=== PATIENT | female | born 2000 | race Caucasian/White ===

== ENCOUNTER 2023-06-24 08:53 | Outpatient (AMB) | payer BC, SELFPAY ==
--- NOTE | 2023-06-24 09:42 | MHC.PC.OV ---
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 She denies a significant past medical history. She is transferring from pediatrics. musculoskeletal: She does complain today of left ankle pain x 2 months. She was playing soccer and rolled her ankle and then saw who ordered crutches and a brace. She used the brace for about a week. She states the pain initially improved but never fully went away. She states now with any prolonged activity she gets swelling and persistent, worse pain. She did not get any imaging from the urgent care. Psych: She did answer on her phq9 a total of 4. She states she is feeling overwhelmed and on certain days just feels like she lacks the energy to do anything. She states that she stress between working, going to school full-time at [employer] and trying to play sports. On days off she just wants to watch TV and not talk to anyone. This is very unlike her. This started about a year ago and waxes and wanes in intensity. She does not believe she is ever been on medication for this before but states that in childhood she was diagnosed with generalized anxiety disorder. She was sometimes have panic attacks but does not currently feel like that as a problem for her. This all seemed to start after she got out of a long-term relationship. She also feels that winter has made it a bit worse. She denies feeling hopeless, any SI/HI. She states that she just lacks motivation and at times isolates herself. She is doing well in school. No issues with working. She does at times feel anxious. 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 [facility], [facility] Family History (Updated 06/24/23 @ 10:18 by Glendy Arias CMA) Mother Asthma Father Asthma HTN (hypertension) Hypercholesteremia Alcoholism Paternal Grandmother Hypercholesteremia Paternal Grandfather Clotting disorder Alcoholism Other Mental disorder Substance abuse Social History Patient Tobacco Use Status: Never used Tobacco e-Cigarette/Vaping Use: Former Use service: No Current occupational status: employed Current occupation: [employer] Current occupational exposures/hazards: No Cognitive needs: No Hearing needs: No Vision needs: Yes Questionnaire PHQ-9 Over the last 2 weeks, how often have you been bothered by any of the following problems? 1. Little interest or pleasure in doing things: several days 2. Feeling down, depressed, or hopeless: several days 3. Trouble falling or staying asleep, or sleeping too much: several days 4. Feeling tired or having little energy: several days 5. Poor appetite or overeating: not at all 6. Feeling bad about yourself - or that you are a failure or have let yourself or your family down: not at all 7. Trouble concentrating on things, such as reading the newspaper or watching television: not at all 8. Moving or speaking so slowly that other people could have noticed. Or the opposite - being so fidgety or restless that you have been moving around a lot more than usual: not at all 9. Thoughts that you would be better off or of hurting yourself in some way: not at all Total score: 4 Depression Screening Interpretation: Positive Depression Screening Follow-up: New Medication prescribed and Follow-up Visit Requested Depression Screening Done: Yes 76112 - PHQ-9 Billing: Yes Source: Developed by Drs. Feng Thorpe, Cass Gamboa, Marcus Tenorio and colleagues, with an educational kin from [employer]. Thrive Questionnaire Date Thrive assessed: 06/24/23 I am a: Patient What is your living situation today?: I have a steady place to live Within the past 12 months, did the food you bought not last and you didn't have the money to get more?: Never true Within the past 12 months, did you worry whether your food would run out before you got money to buy more?: Never true Do you have trouble paying for medicines?: No Do you have trouble getting transportation to medical appointments?: No Do you have trouble paying your heating and electricity bill?: No Do you have trouble taking care of your child, family member or friend?: No Do you have trouble with day-to-day activities such as bathing, preparing meals, shopping, managing finances, etc.?: No Are you currently unemployed and looking for a job?: No Are you interested in more education?: No Please select the resources that you would like help with: None Currently or been in a relationship where the following occur: no concerns reported THRIVE Score: 0 AUDIT C Alcohol Use Questionnaire (AUDIT-C) 1. How often do you have a drink containing alcohol?: Monthly or less 2. How many drinks containing alcohol do you have on a typical day when you are drinking?: 3 or 4 3. How often do you have six or more drinks on one occasion?: Less than monthly Total Score: 3 Score Reviewed/Action Taken: Yes ARTURO-7 AMB Questionnaire ARTURO-7 Date ARTURO - 7 assessed: 06/24/23 Feeling nervous, anxious, or on edge: 2 = More than half the days Not being able to stop or control worryin = Several days Worrying too much about different things: 1 = Several days Trouble relaxin = Not at all Being so restless that it is hard to sit still: 0 = Not at all Becoming easily annoyed or irritable: 0 = Not at all Feeling afraid as if something awful might happen: 1 = Several days Total ARTURO-7 score (0-4 normal; 5-9 mild; 10-14 moderate; 15-21 severe): 5 Source: Developed by Drs. Feng Thorpe, Cass Gamboa, Marcus Tenorio and colleagues, with an educational kin from [employer] ARTURO-7 Assessment Billing ARTURO-7 Assessment Tool: ARTURO-7 Assessment 86347 Physical exam (Primary Care) Vital Signs: Last Vital Signs Temp 98.1 F 06/24/23 09:46 Pulse 83 06/24/23 09:46 Resp 12 06/24/23 09:46 BP 118/80 06/24/23 09:46 Pulse Ox 99 06/24/23 09:46 Oxygen Delivery Method Room Air 06/24/23 09:46 BMI result Body Mass Index 30.9 Tobacco/Smoking Status: Tobacco use Status Tobacco use date assessed 06/24/23 06/24/23 09:50 Patient Tobacco Use Status Never used Tobacco 06/24/23 09:50 e-Cigarette/Vaping Use Former Use 06/24/23 09:50 Depression Screening Interpretation: Positive Depression Screening Follow-up: New Medication prescribed and Follow-up Visit Requested Currently or been in a relationship where the following occur: no concerns reported Const General: cooperative, healthy appearing and no acute distress Orientation/consciousness: patient oriented x3 HENMT Ears: hearing grossly normal bilaterally and TM's normal bilaterally Face and sinus: Yes sinuses nontender Mouth: Normal oral and palatal mucosa present Throat: Yes posterior oropharynx normal, Yes tonsils normal and Yes uvula midline Eyes Pupils: Equal, round and reactive pupils present EOM: EOMs intact bilaterally Neck Neck: Yes full ROM and Yes no lymphadenopathy Thyroid: Thyroid normal Resp Auscultation: clear to auscultation bilaterally Cardio Rate: regular rate Rhythm: regular rhythm Heart sounds: S1 normal heart sound present and S2 normal heart sound present GI Palpation (GI): Soft to palpation and Other GI palpation findings present (Nontender) Auscultation: normal bowel sounds General: Yes no CVA tenderness Back/Spine/Pelvis Back: no CVA tenderness and other (FROM, nontender) Skin General skin exam: no rashes or lesions noted Neuro General: patient oriented x3, gait normal, no focal motor deficits and CN's II-XI intact bilaterally Cranial nerves: Yes Equal, round and reactive pupils present Cognition (Neuro): normal cognition Motor exam (neuro): 5/5 motor strength present throughout Psych Appearance: grossly normal and well kempt Speech and movement: Normal speech and movement present Affect: normal affect Thought process: Normal thought process present Thought content: Normal thought content present Insight: Good insight present (Psych) Judgement: Good judgement present (Psych) Assessment and Plan Assessment & Plan (1) Routine general medical examination at a health care facility: Code(s): Z00.00 - Encounter for general adult medical examination without abnormal findings Plan: reviewed labs ordered referral to forging press 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 discussed risks and benefits and adverse effects. declines follow up 4-6 weeks for recheck (4) Dysthymia: Code(s): F34.1 - Dysthymic disorder Plan: see above. No SI/HI. advised emergent medical treatment if develops. labs ordered (5) Left ankle pain: Code(s): M25.572 - Pain in left ankle and joints of left foot Qualifiers: Chronicity: chronic Qualified Code(s): M25.572 - Pain in left ankle and joints of left foot; G89.29 - Other chronic pain Plan: referral ortho xray ordered Orders: Orders Lipid Panel Today E66.9 - Obesity, unspecified, F34.1 - Dysthymic disorder, F41.0 - Panic disorder [episodic paroxysmal anxiety], F41.1 - Generalized anxiety disorder, Z00.00 - Encounter for general adult medical examination without abnormal findings Complete Blood Count Auto Diff Today E66.9 - Obesity, unspecified, F34.1 - Dysthymic disorder, F41.0 - Panic disorder [episodic paroxysmal anxiety], F41.1 - Generalized anxiety disorder, Z00.00 - Encounter for general adult medical examination without abnormal findings Comprehensive [place]. Panel Fast Today E66.9 - Obesity, unspecified, F34.1 - Dysthymic disorder, F41.0 - Panic disorder [episodic paroxysmal anxiety], F41.1 - Generalized anxiety disorder, Z00.00 - Encounter for general adult medical examination without abnormal findings TSH reflex Free T4 Today E66.9 - Obesity, unspecified, F34.1 - Dysthymic disorder, F41.0 - Panic disorder [episodic paroxysmal anxiety], F41.1 - Generalized anxiety disorder, Z00.00 - Encounter for general adult medical examination without abnormal findings Vitamin B12 Today E66.9 - Obesity, unspecified, F34.1 - Dysthymic disorder, F41.0 - Panic disorder [episodic paroxysmal anxiety], F41.1 - Generalized anxiety disorder, Z00.00 - Encounter for general adult medical examination without abnormal findings XR ankle LT min 3V Today M25.572 - Pain in left ankle and joints of left foot, Z00.00 - Encounter for general adult medical examination without abnormal findings Referrals Orthopedics Referral M25.572 - Pain in left ankle and joints of left foot 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 Referral Z01.419 - Encounter for gynecological examination (general) (routine) without abnormal findings Medications: New escitalopram oxalate (Lexapro) 5 mg PO DAILY 90 tabs 0RF Coding Level of Care Code New Pt Prev Care 18-39yr(58141 Diagnoses Routine general medical examination at a health care facility Z00.00 Obesity (BMI 35.0-39.9 without comorbidity) E66.9 Generalized anxiety disorder with panic attacks F41.1; F41.0 Dysthymia F34.1 Chronic pain of left ankle M25.572; G89.29 Chronicity: chronic Additional Codes ARTURO-7 Assessment Billing - ARTURO-7 Assessment Tool: ARTURO-7 Assessment 50022 ([id number])
[2023-06-24 09:46] VITALS: BP 118/80; PULSE 83; RESP 12; TEMP 36.7; O2SAT 99; BMI 30.9
== END 2023-06-24 10:25 | disposition home or self-care (01) ==
PROVIDERS: PCP Physician Assistant; Visit Provider Physician Assistant
DX: Z00.00 Encounter for general adult medical examination without abnormal findings (principal); E66.9 Obesity, unspecified; F41.1 Generalized anxiety disorder; Z68.30 Body mass index [BMI] 30.0-30.9, adult; F41.0 Panic disorder [episodic paroxysmal anxiety]; F34.1 Dysthymic disorder; M25.572 Pain in left ankle and joints of left foot; G89.29 Other chronic pain
CPT/HCPCS: 96127; 99385

== ENCOUNTER 2023-06-24 10:24 | Outpatient (REF) | payer BC, SELFPAY ==
[2023-06-24 11:19] LABS: MANUAL DIFF FLAG NO
[2023-06-24 11:36] LABS: Basophils Percent Auto 0.5 % (0-2); Eosinophils Absolute Auto 0.2 X10*3/uL (0.0-0.4); Hematocrit 45.4 % (37.0-47.0); Hemoglobin 15.1 g/dl (12.0-16.0); Imm Gran Abs Auto 0.01 X10*3/uL (0.00-0.03); Imm Gran Pct Auto 0.2 % (0.0-0.4); Lymphocytes Percent Auto 31.1 % (20-40); Mean Corpuscular HGB Conc 33.3 g/dl (31.0-35.0); Mean Corpuscular Hemoglobin 29.9 pg (27.0-33.0); Mean Corpuscular Volume 89.9 fL (80.0-98.0); Mean Platelet Volume 10.9 fL (9.4-12.3); Monocytes Absolute Auto 0.5 X10*3/uL (0.1-1.2); Monocytes Percent Auto 7.7 % (2-11); Neutrophils Absolute Auto 3.7 x10*3/uL (2.0-8.3); Neutrophils Percent Auto 57.5 % (45-73); Platelet Count 268 X10*3/uL (160-400); Red Blood Count 5.05 X10*6/uL (4.20-5.50); White Blood Count 6.3 X10*3/uL (4.8-10.8)
[2023-06-24 12:16] LABS: Alanine Aminotransferase 26 U/L (0-31); Albumin Level 4.3 g/dL (3.5-5.0); Alkaline Phosphatase 101 U/L (39-117); Anion Gap 10 (12-20); Aspartate Amino Transferase 18 U/L (5-31); Bilirubin Total 0.5 mg/dL (0.0-1.0); Blood Urea Nitrogen 8 mg/dL (9-16); Calcium 9.2 mg/dL (8.4-10.2); Carbon Dioxide 29 mmol/L (22-29); Chloride 104 mmol/L (96-108); Cholesterol 202 mg/dL (<200); Estimated Glomerular Filt Rate > 60; Glucose Fasting 92 mg/dL (60-99); HDL Cholesterol 65 mg/dL (>40); LDL Cholesterol Calculated 122 mg/dL (<100); Potassium 3.8 mmol/L (3.3-5.1); Sodium 139 mmol/L (135-145); Total Protein 7.7 g/dL (6.5-8.0); Triglycerides 75 mg/dL (<150)
[2023-06-24 12:28] LABS: Vitamin B12 410 pg/mL (200-900)
[2023-06-24 12:33] LABS: TSH reflex Free T4 1.56 uIU/mL (0.32-4.0)
== END 2023-06-24 10:25 | disposition home or self-care (01) ==
LOC: HO.WFDLDS 10:24
PROVIDERS: Visit Provider Physician Assistant
DX: Z00.00 Encounter for general adult medical examination without abnormal findings (principal); F34.1 Dysthymic disorder; E66.9 Obesity, unspecified; F41.1 Generalized anxiety disorder; F41.0 Panic disorder [episodic paroxysmal anxiety]
CPT/HCPCS: 36415; 80053; 80061; 82607; 84443; 85025

== ENCOUNTER 2023-06-30 11:01 | Outpatient (REF) | payer BC, SELFPAY ==
--- NOTE | ~2023-06-30 | XR_ITS ---
EXAMINATION: XR ANKLE, LEFT CLINICAL INFORMATION: Pain. COMPARISON: None available. TECHNIQUE: AP, lateral, and mortise views of the left ankle. FINDINGS: No fracture. Alignment is anatomic. No erosions. Joint spaces are maintained. Soft tissues are normal. XR/XR ankle LT min 3V IMPRESSION: Normal left ankle.
== END 2023-06-30 11:02 | disposition home or self-care (01) ==
LOC: HO.XRAY 11:01
PROVIDERS: PCP Physician Assistant; Visit Provider Physician Assistant
DX: M25.572 Pain in left ankle and joints of left foot (principal)
CPT/HCPCS: 73610

== ENCOUNTER 2023-07-28 10:16 | Outpatient (AMB) | payer BC, SELFPAY ==
--- NOTE | 2023-07-28 10:23 | MHC.PC.OV ---
Vital Signs 07/28/23 10:25 Height 5 ft 3 in Weight 177 lb 6 oz BMI 31.4 BP 112/70 Blood Pressure Location Rt brachial Position Sitting Respiration 14 Pulse 97 Pulse Source Pulse Oximeter Pulse Oximetry (%) 97 Oxygen Delivery Method Room Air Intake Visit Reasons: depression f/u Intake Note: Follow up depression. Storeroom Clerk Required: No Allergies No Known Allergies Allergy (Verified 07/28/23 10:24) Medication List - Last Reconciled 07/28/23 by Jennifer Martel PA-C escitalopram oxalate (Lexapro) 5 mg PO DAILY Tobacco use date assessed: 07/28/23 Dental Screening Dental Screen Date: 06/24/23 HPI depression f/u HPI Details Patient is a 22-year-old female who presents today for a follow up. musculoskeletal: At our last visit she complained of left ankle pain for the last couple of months. She had an x-ray which was negative. She has an upcoming appointment with Orthopedics next week. Psych: At our last visit we did discuss her increased stress, anxiety and depression. She was started on Lexapro 5 mg. She states that she is tolerating this well. At our last visit she had a PHQ-9 score of 4 and now she has a 3. She does not want to adjust the medication because she is feeling like she is tolerating the medication well and able to cope better. She wants to get this more time especially as she just finished her semester. She denies any SI/HI. 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 scheduled [facility] Family History (Updated 06/24/23 @ 10:18 by Glendy Arias CMA) Mother Asthma Father Asthma HTN (hypertension) Hypercholesteremia Alcoholism Paternal Grandmother Hypercholesteremia Paternal Grandfather Clotting disorder Alcoholism Other Mental disorder Substance abuse Social History Patient Tobacco Use Status: Never used Tobacco e-Cigarette/Vaping Use: Former Use service: No Current occupational status: employed Current occupation: [employer] Current occupational exposures/hazards: No Cognitive needs: No Hearing needs: No Vision needs: Yes Questionnaire PHQ-9 Over the last 2 weeks, how often have you been bothered by any of the following problems? 1. Little interest or pleasure in doing things: not at all 2. Feeling down, depressed, or hopeless: not at all 3. Trouble falling or staying asleep, or sleeping too much: more than half the days 4. Feeling tired or having little energy: several days 5. Poor appetite or overeating: not at all 6. Feeling bad about yourself - or that you are a failure or have let yourself or your family down: not at all 7. Trouble concentrating on things, such as reading the newspaper or watching television: not at all 8. Moving or speaking so slowly that other people could have noticed. Or the opposite - being so fidgety or restless that you have been moving around a lot more than usual: not at all 9. Thoughts that you would be better off or of hurting yourself in some way: not at all Total score: 3 Depression Screening Interpretation: Positive Depression Screening Done: Yes 81983 - PHQ-9 Billing: Yes Source: Developed by Drs. Feng Thorpe, Cass Gamboa, Marcus Tenorio and colleagues, with an educational kin from [employer] Thrive Questionnaire Date Thrive assessed: 06/24/23 ARTURO-7 AMB Questionnaire ARTURO-7 Date ARTURO - 7 assessed: 07/28/23 Feeling nervous, anxious, or on edge: 1 = Several days Not being able to stop or control worryin = Not at all Worrying too much about different things: 0 = Not at all Trouble relaxin = Not at all Being so restless that it is hard to sit still: 0 = Not at all Becoming easily annoyed or irritable: 1 = Several days Feeling afraid as if something awful might happen: 0 = Not at all Total ARTURO-7 score (0-4 normal; 5-9 mild; 10-14 moderate; 15-21 severe): 2 Source: Developed by Drs. Feng Thorpe, Cass Gamboa, Marcus Tenorio and colleagues, with an educational kin from [employer] ARTURO-7 Assessment Billing ARTURO-7 Assessment Tool: ARTURO-7 Assessment 79227 Physical exam (Primary Care) Vital Signs: Last Vital Signs Pulse 97 07/28/23 10:25 Resp 14 07/28/23 10:25 BP 112/70 07/28/23 10:25 Pulse Ox 97 07/28/23 10:25 Oxygen Delivery Method Room Air 07/28/23 10:25 BMI result Body Mass Index 31.4 Tobacco/Smoking Status: Tobacco use Status Tobacco use date assessed 07/28/23 07/28/23 10:25 Patient Tobacco Use Status Never used Tobacco 07/28/23 10:25 e-Cigarette/Vaping Use Former Use 07/28/23 10:25 PHQ-9: PHQ-9 Score PHQ-9: Total score 3 07/28/23 10:29 Depression Screening Interpretation: Positive Thrive Assessment: Date of Thrive Assessment Date Thrive assessed 06/24/23 07/28/23 10:25 Const Orientation/consciousness: patient oriented x3 HENMT Ears: hearing grossly normal bilaterally Neck Thyroid: Thyroid normal Lymphatic: no lymphadenopathy noted Resp Auscultation: clear to auscultation bilaterally Cardio Rate: regular rate Rhythm: regular rhythm Heart sounds: S1 normal heart sound present and S2 normal heart sound present GI Inspection: Yes normal to inspection Palpation (GI): Soft to palpation and Other GI palpation findings present (nontender, no cva tenderness) Auscultation: normoactive bowel sounds Rectal Exam - Female: deferred Skin General skin exam: no rashes or lesions noted Neuro General: patient oriented x3, gait normal and no focal motor deficits Results Reviewed Results Reviewed: Laboratory Tests 06/24/23 10:30 WBC 6.3 RBC 5.05 Hgb 15.1 Hct 45.4 Plt Count 268 Sodium 139 Potassium 3.8 Chloride 104 Carbon Dioxide 29 Anion Gap 10 L BUN 8 L Creatinine 0.69 Estimated GFR > 60 Fasting Glucose 92 Calcium 9.2 Total Bilirubin 0.5 AST 18 ALT 26 Alkaline Phosphatase 101 Total Protein 7.7 Albumin 4.3 Triglycerides 75 Cholesterol 202 H LDL Cholesterol, Calc 122 H HDL Cholesterol 65 Vitamin B12 410 TSH 1.56 Assessment and Plan Assessment & Plan (1) Dysthymia: Code(s): F34.1 - Dysthymic disorder Plan: Continue current regimen. We reviewed labs. Offered referral to behavioral health but declines at this time. Follow up in 3 months. Sooner if needed. Patient understands and agrees with the plan. (2) Generalized anxiety disorder with panic attacks: Code(s): F41.1 - Generalized anxiety disorder; F41.0 - Panic disorder [episodic paroxysmal anxiety] (3) Left ankle pain: Code(s): M25.572 - Pain in left ankle and joints of left foot Qualifiers: Chronicity: chronic Qualified Code(s): M25.572 - Pain in left ankle and joints of left foot; G89.29 - Other chronic pain Plan: Following with ortho. Reviewed imaging. Medications: Refilled escitalopram oxalate (Lexapro) 5 mg PO DAILY 90 tabs 3RF Coding Level of Care Code Est Pt Level 3 (42280) Complex EM visit Add On G2211 Diagnoses Dysthymia F34.1 Generalized anxiety disorder with panic attacks F41.1; F41.0 Chronic pain of left ankle M25.572; G89.29 Chronicity: chronic Additional Codes ARTURO-7 Assessment Billing - ARTURO-7 Assessment Tool: ARTURO-7 Assessment 56702 ([id number])
[2023-07-28 10:25] VITALS: BP 112/70; PULSE 97; RESP 14; O2SAT 97; BMI 31.4
== END 2023-07-28 10:50 | disposition home or self-care (01) ==
PROVIDERS: PCP Physician Assistant; Visit Provider Physician Assistant
DX: F34.1 Dysthymic disorder (principal); F41.1 Generalized anxiety disorder; F41.0 Panic disorder [episodic paroxysmal anxiety]; M25.572 Pain in left ankle and joints of left foot; G89.29 Other chronic pain
CPT/HCPCS: 99213; G2211

== ENCOUNTER 2023-08-03 08:37 | Outpatient (REF) | payer BC, SELFPAY ==
[2023-08-04 11:23] LABS: Bacterial Vaginosis PCR NEGATIVE (Negative); Candida Group PCR NOT DETECTED (Not Detect); Candida glab krusei PCR NOT DETECTED (Not Detect); Trichomonas vaginalis PCR NOT DETECTED (Not Detect)
[2023-08-04 11:40] LABS: CT PCR NOT DETECTED (Not Detect.); NG PCR NOT DETECTED (Not Detect.)
== END 2023-08-03 08:38 | disposition home or self-care (01) ==
LOC: HO.HHCLNP 08:37
PROVIDERS: Visit Provider Advanced Practice Midwife
DX: Z01.419 Encounter for gynecological examination (general) (routine) without abnormal findings (principal); Z20.2 Contact with and (suspected) exposure to infections with a predominantly sexual mode of transmission
CPT/HCPCS: 0352U; 0353U

== ENCOUNTER 2023-08-03 13:37 | Outpatient (AMB) | payer BC, SELFPAY ==
[2023-08-03 13:59] VITALS: BP 110/70; BMI 30.8
--- NOTE | 2023-08-03 13:59 | A.OFFVIS_ITS ---
Vital Signs 08/03/23 13:59 Height 5 ft 3 in Weight 174 lb BMI 30.8 BP 110/70 Intake Visit Reasons: New patient Annual Well Flow Operator Required: No Information Interpreted: clinical only Work Station Support Specialist: Work Station Support Specialist Present Allergies No Known Allergies Allergy (Verified 08/03/23 13:59) Medication List - Last Reconciled 08/03/23 by Bianka Covington CNM escitalopram oxalate (Lexapro) 5 mg PO DAILY Is last menstrual period known: No (7 mth ago) Do you need a note to return to daycare/school/sports/work: No HPI HPI New patient Annual: Details: Patient is here for 1st annual exam she has a history of irregular or amenorrheic patterns and was put on control pills to deal with the amenorrhea at 18 years old she stopped them about 7 months ago because she was not sexually after active for the last year. She thought they were making her depressed but when she got off them did not change in thing she started with a new primary care provider about 3 months ago and has started on Lexapro for anxiety and depression and thinks it is helping she has not interested in counseling or therapy at this time. She also realized that the control pills had nothing to do with depression. She has gained about 20+ lb at least over the last year. She has a history of increased facial hair and acne as well. She would be interested in going back on control pills to help her have regular periods. She has not sexually active now and has not been for least a year. 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 She has a gym membership. [facility] Family History Mother Asthma Father Asthma HTN (hypertension) Hypercholesteremia Alcoholism Paternal Grandmother Hypercholesteremia Paternal Grandfather Clotting disorder Alcoholism Other Mental disorder Substance abuse Social History Patient Tobacco Use Status: Never used Tobacco e-Cigarette/Vaping Use: Former Use service: No Current occupational status: employed Current occupation: [employer] Current occupational exposures/hazards: No Cognitive needs: No Hearing needs: No Vision needs: Yes Female Reproductive History Menstrual Age of Menarche: 14 Duration of menses: 3-5 days control method: none Total pregnancies: 0 History of abnormal pap smear: No (no previous pap) Physical Exam Vital Signs: Last Vital Signs BP 110/70 08/03/23 13:59 BMI result Body Mass Index 30.8 Const General: healthy appearing, comfortable, no acute distress, well developed and alert Nutritional Appearance: average body habitus Orientation/consciousness: patient oriented x3 Limitations: no limitations HEENT Head: Yes normocephalic Neck Neck: Yes normal visual inspection Thyroid: Thyroid normal Chest Chest palpation & inspection: normal inspection of the chest Breast/axilla inspection: normal inspection of the breasts and normal inspection of the axillae Breast/axilla palpation: normal palpation of the breasts and normal palpation of the axillae Resp Effort & Inspection: normal respiratory effort GI Inspection: Yes normal to inspection, No Abdominal wall edema and No distended Palpation (GI): Soft to palpation and nontender Other: So it is more acne but patient says she has it. External exam completely within normal limits vagina pink and moist cervix nulliparous pink smooth mobile nontender scant normal clear discharge uterus midposition mobile nontender adnexa nontender fair tone with Kegel difficult to recreate. General: Yes bladder normal to palpation External Female Exam: normal external appearance and normal appearance of the urethra Speculum Exam - Vagina: normal appearance of the vagina, normal palpation and normal vaginal discharge Speculum Exam - Cervix: normal appearance of the cervix, normal palpation and nontender Bimanual exam- vagina & uterus: normal bimanual exam, normal palpation, uterine size normal, bladder normal to palpation, consistency normal, normal palpation, uterine mobility normal, uterine shape normal, No Cervical tenderness present, non-tender and no cervical motion tenderness Bimanual Exam- Adnexa, other: normal adnexae, no masses, normal and No adnexal tenderness Neuro General: patient oriented x3 Assessment & Plan Assessment & Plan (1) Well woman exam with routine gynecological exam: Code(s): Z01.419 - Encounter for gynecological examination (general) (routine) without abnormal findings Category: Medical (2) Amenorrhea, secondary: Code(s): N91.1 - Secondary amenorrhea Category: Medical (3) Hx of female hirsutism: Code(s): Z87.2 - Personal history of diseases of the skin and subcutaneous tissue Category: Medical (4) Acne: Code(s): L70.9 - Acne, unspecified Category: Medical (5) Papanicolaou smear for cervical cancer screening: Code(s): Z12.4 - Encounter for screening for malignant neoplasm of cervix Category: Medical (6) Encounter for screening examination for sexually transmitted disease: Code(s): Z11.3 - Encounter for screening for infections with a predominantly sexual mode of transmission Category: Medical Plan -----Discussed in this visit the following: healthy balanced diet, regular and consistent exercise, getting recommended health screens, doing the best she can for her particular health concerns, kegel exercises, pap smear screening and followup recommendations, mammography screening and SBE, normal changes in cycles in her life stage--- . ---Discussed PCOS in general and specifically about the interplay of the abnormal hormonal milieu related to being overweight, with the elevations of many hormone levels, including testosterone and estrogen, as well as others that contribute to cycles that are anovulatory and therefore prolonged, and when periods do come they come very heavy, and can contribute to lots of cramping, with passage of clots and anemia. Discussed the common symptoms related to the elvated hormonal levels, including increased facial hair, male pattern hair thinning, acne, and increased central abdominal girth. Discussed the interplay with difficulty getting when desired, but still possible, and therefore the need to contracept as appropriate and when needed. Discussed the role of weight loss as the primary, most important, and most likely to succeed, intervention, in achieving healthier status as regards PCOS, and ovulatory regular cycles. if appropriate, use of oral contraceptives, and provera. Reviewed danger signs of OCPs reviewed her previous experience and how she took them will start her on the Provera to have withdrawal bleed and she should start the pills when she is done with the heaviest part of the withdrawal bleed before the lining of her uterus built up again. She is in agreement with this plan we will see her after the pelvic ultrasound to review the ultrasound and see how she is doing on the pills. I reviewed danger signs of OCPs and what to do and contraindications she has none. Orders: Orders US pelvic and transvaginal Today L70.9 - Acne, unspecified, N91.1 - Secondary amenorrhea, Z01.419 - Encounter for gynecological examination (general) (routine) without abnormal findings, Z11.3 - Encounter for screening for infections with a predominantly sexual mode of transmission, Z12.4 - Encounter for screening for malignant neoplasm of cervix, Z87.2 - Personal history of diseases of the skin and subcutaneous tissue Medications: New desog-e.estradiol/e.estradiol 0.15-0.02 mgx21 /0.01 mg x 5 Start during next menses. 1 tab PO DAILY 84 tabs 4RF L70.9 - Acne, unspecified, N91.1 - Secondary amenorrhea, Z01.419 - Encounter for gynecological examination (general) (routine) without abnormal findings, Z11.3 - Encounter for screening for infections with a predominantly sexual mode of transmission, Z12.4 - Encounter for screening for malignant neoplasm of cervix, Z87.2 - Personal history of diseases of the skin and subcutaneous tissue medroxyprogesterone (Provera) 10 mg PO DAILY 10 tabs 0RF Coding Level of Care Code New Pt Prev Care 18-39yr(26881 Diagnoses Well woman exam with routine gynecological exam Z01.419 Amenorrhea, secondary N91.1 Hx of female hirsutism Z87.2 Acne L70.9 Papanicolaou smear for cervical cancer screening Z12.4 Encounter for screening examination for sexually transmitted disease Z11.3
== END 2023-08-03 14:57 | disposition home or self-care (01) ==
PROVIDERS: PCP Physician Assistant; Visit Provider Advanced Practice Midwife
DX: Z01.419 Encounter for gynecological examination (general) (routine) without abnormal findings (principal); N91.1 Secondary amenorrhea; Z87.2 Personal history of diseases of the skin and subcutaneous tissue; L70.9 Acne, unspecified; Z12.4 Encounter for screening for malignant neoplasm of cervix; Z11.3 Encounter for screening for infections with a predominantly sexual mode of transmission
CPT/HCPCS: 99385

== ENCOUNTER 2023-08-03 13:37 | Outpatient (REF) | payer BC, SELFPAY | END 2023-08-03 13:38 | disposition home or self-care (01) | LOC: HO.LAB 13:37 | PROVIDERS: PCP Physician Assistant; Visit Provider Advanced Practice Midwife | DX: Z01.419 Encounter for gynecological examination (general) (routine) without abnormal findings (principal); N91.1 Secondary amenorrhea | CPT/HCPCS: 88142 ==

== ENCOUNTER 2023-08-12 10:24 | Outpatient (AMB) | payer BC, SELFPAY ==
--- NOTE | 2023-08-12 10:35 | A.OFFVIS_ITS ---
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 Patient reports that she was playing soccer in March and rolled her ankle and then saw urgent care who provided crutches and a brace. She used the brace for about a week. She states the pain initially improved but never fully went away. Swelling and persistent worsening pain on the lateral aspect of the ankle with prolonged activity. Denied numbness and tingling. Allergies No Known Allergies Allergy (Verified 08/03/23 13:59) Medication List - Last Reconciled 08/12/23 by Cathy Preston MD desog-e.estradiol/e.estradiol 0.15-0.02 mgx21 /0.01 mg x 5 1 tab PO DAILY escitalopram oxalate (Lexapro) 5 mg PO DAILY medroxyprogesterone (Provera) 10 mg PO DAILY HPI Comments Details: Played soccer last winter, first time for awhile to participate in a league. Left ankle, rolled over, during a game in April. Sudden swelling. From urgent care, given carlito wrap. If on her feet all day, it could start to be painful and swollen, pointing to lateral ankle and achilles. Can walk, not limping. No numbness. No foot drop or weakness. Treatment done so far: NSAIDs, ice PFSH Medical History (Updated 08/12/23 @ 11:09 by Cathy Preston MD) Sprain of left ankle Family History Mother Asthma Father Asthma HTN (hypertension) Hypercholesteremia Alcoholism Paternal Grandmother Hypercholesteremia Paternal Grandfather Clotting disorder Alcoholism Other Mental disorder Substance abuse Social History (Updated 08/12/23 @ 10:42 by nAca Dorantes [facility]) Patient Tobacco Use Status: Never used Tobacco e-Cigarette/Vaping Use: Former Use service: No Current occupational status: employed Current occupation: [employer] Current occupational exposures/hazards: No Cognitive needs: No Hearing needs: No Vision needs: Yes Female Reproductive History Menstrual Age of Menarche: 14 Review of Systems Const All systems reviewed & are unremarkable except as noted in HPI and below Physical Exam Vital Signs: BMI result Body Mass Index 30.8 Constitutional: Patient appears to be in no acute distress, well nourished and well developed. MSK: No tenderness on left lateral and medial malleoli, Achillis tendon or plantar fascia. No calf tenderness. No tenderness along tibialis anterior or peroneus longus muscles/tendons. No redness, swelling, warmth. Able to stand on toes and heels. Strength is 5/5 in all muscle groups tested. No increased tone noted. Neurological: Neurologic examination of the upper and lower extremities was nonfocal with intact sensation, muscle stretch reflexes and without focal motor deficits . Babinski was down going bilaterally. Clonus was negative. Gait is non-antalgic without loss of balance. Results Reviewed Results Reviewed: I independently reviewed the results of the following: Ankle x-ray did not show acute fracture. No spurs. Ordering Physician: Jennifer Martel Date of Service: 06/30/23 Procedure(s): XR ankle LT min 3V Accession Number(s): [id number] cc: Jennifer Martel~ EXAMINATION: XR ANKLE, LEFT CLINICAL INFORMATION: Pain. COMPARISON: None available. TECHNIQUE: AP, lateral, and mortise views of the left ankle. FINDINGS: No fracture. Alignment is anatomic. No erosions. Joint spaces are maintained. Soft tissues are normal. XR/XR ankle LT min 3V IMPRESSION: Normal left ankle. I reviewed records from the following: PCP Assessment & Plan Assessment & Plan (1) Sprain of left ankle: Code(s): S93.402A - Sprain of unspecified ligament of left ankle, initial encounter Category: Medical Qualifiers: Encounter type: initial encounter Involved ligament of ankle: anterior talofibular ligament Qualified Code(s): S93.492A - Sprain of other ligament of left ankle, initial encounter Plan Suspect she had a left lateral ankle sprain that is now healing. No more signs of acute injury. Though bothers her with prolonged standing. We discussed option between wearing a lace up ankle brace (which may provide stability but be too restrictive at this point of healing) vs a compression sock. She tried on the lace up brace and chose that. She is also given exercises to do at home. She wants to try this first, and if not better in 1 month, she agrees that I will have to refer her to PT. Assessment and plan discussed with patient, and patient was agreeable. All questions were answered thoroughly. She will call us in 1 month. Cathy Preston MD, KAILEY Board Certified, [place] Board of Physical Medicine and Rehabilitation (ABPMR) Board Certified, [place] Board of Electrodiagnostic Medicine (ABEM) Coding Level of Care Code New Pt Level 4 (19006) Diagnoses Sprain of anterior talofibular ligament of left ankle, initial encounter S93.492A Encounter type: initial encounter Involved ligament of ankle: anterior talofibular ligament
[2023-08-12 10:40] VITALS: BMI 30.8
== END 2023-08-12 11:16 | disposition home or self-care (01) ==
PROVIDERS: PCP Physician Assistant; Visit Provider Physical Medicine & Rehabilitation
DX: S93.492A Sprain of other ligament of left ankle, initial encounter (principal)
CPT/HCPCS: 99203

== ENCOUNTER → 2023-08-12 10:24 | Outpatient (BNVA) | payer BC, SELFPAY | PROVIDERS: PCP Physician Assistant; Visit Provider Physical Medicine & Rehabilitation ==

== ENCOUNTER 2023-08-17 15:18 | Outpatient (REF) | payer BC, SELFPAY ==
--- NOTE | ~2023-08-17 | US_ITS ---
EXAMINATION: US PELVIS CLINICAL INFORMATION: Amenorrhea, irregular periods. COMPARISON: None available. TECHNIQUE: Ultrasound of the pelvis is performed using both transabdominal and transvaginal transducers along with Doppler. Transvaginal imaging is performed due to inadequate visualization transabdominally. FINDINGS: The uterus is anteverted and measures 6.7 x 2.4 x 3.8 cm. Endometrium is echogenic and heterogeneous with thickness of 6 mm. Small amount of fluid in the right adnexa. Right ovary is larger in size than the left. Right ovary measures 4.1 x 2.8 x 2.2 cm, volume 13.2 mm. Left ovary measures 2.8 x 2.7 x 2.2 cm, volume 8.7 mL. Bilateral ovaries demonstrate multiple small peripheral follicles. US/US pelvic and transvaginal IMPRESSION: Endometrium is echogenic and heterogeneous with thickness of 6 mm. Small amount of fluid in the right adnexa. Right ovary is larger in size than the left. Right ovary measures 4.1 x 2.8 x 2.2 cm, volume 13.2 mm. Left ovary measures 2.8 x 2.7 x 2.2 cm, volume 8.7 mL. Bilateral ovaries demonstrate multiple small peripheral follicles.
== END 2023-08-17 15:19 | disposition home or self-care (01) ==
LOC: HO.US 15:18
PROVIDERS: PCP Physician Assistant; Visit Provider Advanced Practice Midwife
DX: N91.1 Secondary amenorrhea (principal); L70.9 Acne, unspecified; Z87.2 Personal history of diseases of the skin and subcutaneous tissue
CPT/HCPCS: 76830; 76856

== ENCOUNTER 2023-09-14 11:14 | Outpatient (AMB) | payer BC, SELFPAY ==
--- NOTE | 2023-09-14 11:50 | MHC.OFFVIS ---
Vital Signs 09/14/23 11:52 Height 5 ft 3 in Weight 174 lb BMI 30.8 BP 100/60 Intake Visit Reasons: Ultrasound Follow up Analytical Consultant Required: No Analytical Consultant Services: Analytical Consultant Present Information Interpreted: clinical only Public Address Announcer: Public Address Announcer Present Allergies No Known Allergies Allergy (Verified 09/14/23 11:51) Is last menstrual period known: Yes Last menstrual period: 08/17/23 Do you need a note to return to daycare/school/sports/work: No HPI HPI Ultrasound Follow up: Details: Patient is here to review her ultrasound which she had done to follow-up on period of several months with no menses she also took Provera in that time and about 3 days after she finished the Provera she did get a 5 day. It was heavy but it was not as heavy she was expecting so was not that bad then she started on the control pills and she is awaiting her 1st. 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 She used to be more active but she had as injury with her ankle while playing soccer so she had to stop but she is hoping to get back to it and she does have a gym membership. She has not currently sexually active she does note increased acne current she does not have much increased facial hair. 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 - [employer] Current occupational exposures/hazards: No Cognitive needs: No Hearing needs: No Vision needs: Yes Female Reproductive History Menstrual Age of Menarche: 14 Duration of menses: 3-5 days Date of last menstrual period: 08/17/23 control method: pills Total pregnancies: 0 Physical Exam Vital Signs: Last Vital Signs BP 100/60 09/14/23 11:52 BMI result Body Mass Index 30.8 Results Reviewed Results Reviewed: Patient: Chantell Arevalo MR#: [id number] : 2000 Acct:[id number] Age/Sex: 23 / F ADM Date: 08/17/23 Loc: HO.US Attending Dr: Bianka Covington CNM Ordering Physician: Bianka Covington CNM Date of Service: 08/17/23 Procedure(s): US pelvic and transvaginal Accession Number(s): [id number] cc: Jennifer Martel; Bianka Covington CNM~ EXAMINATION: US PELVIS CLINICAL INFORMATION: Amenorrhea, irregular periods. COMPARISON: None available. TECHNIQUE: Ultrasound of the pelvis is performed using both transabdominal and transvaginal transducers along with Doppler. Transvaginal imaging is performed due to inadequate visualization transabdominally. FINDINGS: The uterus is anteverted and measures 6.7 x 2.4 x 3.8 cm. Endometrium is echogenic and heterogeneous with thickness of 6 mm. Small amount of fluid in the right adnexa. Right ovary is larger in size than the left. Right ovary measures 4.1 x 2.8 x 2.2 cm, volume 13.2 mm. Left ovary measures 2.8 x 2.7 x 2.2 cm, volume 8.7 mL. Bilateral ovaries demonstrate multiple small peripheral follicles. US/US pelvic and transvaginal IMPRESSION: Endometrium is echogenic and heterogeneous with thickness of 6 mm. Small amount of fluid in the right adnexa. Right ovary is larger in size than the left. Right ovary measures 4.1 x 2.8 x 2.2 cm, volume 13.2 mm. Left ovary measures 2.8 x 2.7 x 2.2 cm, volume 8.7 mL. Bilateral ovaries demonstrate multiple small peripheral follicles. Dictated By: Andria Coulter MD Signed By: <Electronically signed by Andria Coulter MD in OV> 09/01/23 0411 I also reviewed with her all of her basic metabolic labs that were done by her P[facility].. DD/ 1542 TD/TT: Health Sciences Department Chair: Assessment & Plan Assessment & Plan (1) Acne: Code(s): L70.9 - Acne, unspecified Category: Medical (2) Hx of female hirsutism: Code(s): Z87.2 - Personal history of diseases of the skin and subcutaneous tissue Category: Medical (3) Amenorrhea, secondary: Code(s): N91.1 - Secondary amenorrhea Category: Medical (4) PCOS (polycystic ovarian syndrome): Code(s): E28.2 - Polycystic ovarian syndrome Category: Medical (5) Surveillance for control, oral contraceptives: Code(s): Z30.41 - Encounter for surveillance of contraceptive pills Category: Medical (6) Obesity (BMI 30-39.9): Code(s): E66.9 - Obesity, unspecified Category: Medical Plan This note is constructed using voice recognition software. While every effort has been made to ensure accuracy, gasoline locomotive crane operator errors may have ---Discussed PCOS in general and specifically about the interplay of the abnormal hormonal milieu related to being overweight, with the elevations of many hormone levels, including testosterone and estrogen, as well as others that contribute to cycles that are anovulatory and therefore prolonged, and when periods do come they come very heavy, and can contribute to lots of cramping, with passage of clots and anemia. Discussed the common symptoms related to the elvated hormonal levels, including increased facial hair, male pattern hair thinning, acne, and increased central abdominal girth. Discussed the interplay with difficulty getting when desired, but still possible, and therefore the need to contracept as appropriate and when needed. Discussed the role of weight loss as the primary, most important, and most likely to succeed, intervention, in achieving healthier status as regards PCOS, and ovulatory regular cycles. Additionally the very important relationship to elevated insulin levels, and blood sugars, and high risk of pre diabetes, progressing to diabetes as well as other metabolic syndromes related to this was discussed. Also discussed common interventions for some of the above, including if appropriate, use of oral contraceptives, and progestin iuds, and provera.been included. Basically in this visit I re-reviewed everything about PCOS that we had talked about in the last visit reviewed that it was great that she got her period after taking the Provera and she wants to stay on the control pills now. Reviewed that she has several the markers for PCOS and the best thing of all is to try and not gain weight in fact lose weight if she can if in the future she is in place where she is trying to get best thing to do would be stay on the control pills until she is trying then stop keep very good records of all efforts at conceiving and timing and documented everything and if no success in 6 months seek infertility assistance. It may take a little longer, but it does not mean she can not get and sometimes all that has needed is a little assistance the which PCOS she would not want to wait longer than 6 months of trying before for assistance. In general the best thing is to maintain healthy we wait and discuss that all of this is to maintain her healthy liver pancreas and kidneys and all other bodily functions I reviewed her labs with her as well which were all within normal limits except for the cholesterol and LDL. Coding Level of Care Code Est Pt Level 3 (26160) Diagnoses Acne L70.9 Hx of female hirsutism Z87.2 Amenorrhea, secondary N91.1 PCOS (polycystic ovarian syndrome) E28.2 Surveillance for control, oral contraceptives Z30.41 Obesity (BMI 30-39.9) E66.9
[2023-09-14 11:52] VITALS: BP 100/60; BMI 30.8
== END 2023-09-14 13:12 | disposition home or self-care (01) ==
LOC: HO.HWSM 11:14
PROVIDERS: PCP Physician Assistant; Visit Provider Advanced Practice Midwife
DX: E28.2 Polycystic ovarian syndrome (principal); Z30.41 Encounter for surveillance of contraceptive pills; L70.9 Acne, unspecified; Z87.2 Personal history of diseases of the skin and subcutaneous tissue; E66.9 Obesity, unspecified
CPT/HCPCS: 99213

== ENCOUNTER → 2023-09-14 11:14 | Outpatient (BNVA) | payer BC, SELFPAY | PROVIDERS: PCP Physician Assistant; Visit Provider Advanced Practice Midwife ==

== ENCOUNTER 2023-10-27 13:52 | Outpatient (AMB) | payer BC, SELFPAY ==
--- NOTE | 2023-10-27 14:05 | A.OFFPC_ITS ---
Vital Signs 10/27/23 14:06 Height 5 ft 3 in Weight 179 lb 4 oz BMI 31.7 BP 138/83 Blood Pressure Location Lt brachial Position Sitting Respiration 14 Pulse 104 H Pulse Source Pulse Oximeter Pulse Oximetry (%) 100 Oxygen Delivery Method Room Air Intake Visit Reasons: anxiety Intake Note: Follow up anxiety Promotor Group Ticket Sales Required: No Allergies No Known Allergies Allergy (Verified 10/27/23 14:06) Medication List - Last Reconciled 10/27/23 by Jennifer Martel PA-C desog-e.estradiol/e.estradiol 0.15-0.02 mgx21 /0.01 mg x 5 1 tab PO DAILY escitalopram oxalate (Lexapro) 5 mg PO DAILY Tobacco use date assessed: 07/28/23 Dental Screening Dental Screen Date: 06/24/23 HPI anxiety HPI Details Pt is a 23 y/o female who presents today for a follow up. Psych: Lexapro is very effective for the anxiety and depression. She states that this dosage is perfect. She will let me know if anything changes when she starts school in the fall. Technician Anatomic Pathology: She was recently diagnosed with PCOS and is wondering about taking a medication to help with her weight. She states that her OBGYN started her on control to help with her cycle but she does not like taking this medication because it makes her feel nauseous. She wants to bit. She states without control her cycles very irregular. 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 1. Little interest or pleasure in doing things: several days 2. Feeling down, depressed, or hopeless: not at all 3. Trouble falling or staying asleep, or sleeping too much: more than half the days 4. Feeling tired or having little energy: several days 5. Poor appetite or overeating: not at all 6. Feeling bad about yourself - or that you are a failure or have let yourself or your family down: not at all 7. Trouble concentrating on things, such as reading the newspaper or watching television: not at all 8. Moving or speaking so slowly that other people could have noticed. Or the opposite - being so fidgety or restless that you have been moving around a lot more than usual: not at all 9. Thoughts that you would be better off or of hurting yourself in some way: not at all Total score: 4 Depression Screening Interpretation: Positive Depression Screening Done: Yes 07115 - PHQ-9 Billing: Yes Source: Developed by Drs. Feng Thorpe, Marcus Rubalcava and colleagues, with an educational kin from [employer]. Thrive Questionnaire Date Thrive assessed: 06/24/23 ARTURO-7 AMB Questionnaire ARTURO-7 Date ARTURO - 7 assessed: 10/27/23 Feeling nervous, anxious, or on edge: 1 = Several days Not being able to stop or control worryin = Not at all Worrying too much about different things: 0 = Not at all Trouble relaxin = Not at all Being so restless that it is hard to sit still: 0 = Not at all Becoming easily annoyed or irritable: 0 = Not at all Feeling afraid as if something awful might happen: 0 = Not at all Total ARTURO-7 score (0-4 normal; 5-9 mild; 10-14 moderate; 15-21 severe): 1 Source: Developed by Drs. Feng Thorpe, Marcus Rubalcava and colleagues, with an educational kin from [employer]. ARTURO-7 Assessment Billing ARTURO-7 Assessment Tool: ARTURO-7 Assessment 10923 Physical exam (Primary Care) Vital Signs: Last Vital Signs Pulse 104 H 10/27/23 14:06 Resp 14 10/27/23 14:06 BP 138/83 10/27/23 14:06 Pulse Ox 100 10/27/23 14:06 Oxygen Delivery Method Room Air 10/27/23 14:06 BMI result Body Mass Index 31.7 Tobacco/Smoking Status: Tobacco use Status Tobacco use date assessed 07/28/23 10/27/23 14:11 Patient Tobacco Use Status Never used Tobacco 10/27/23 14:11 e-Cigarette/Vaping Use Former Use 10/27/23 14:11 PHQ-9: PHQ-9 Score PHQ-9: Total score 4 10/27/23 15:04 Depression Screening Interpretation: Positive Thrive Assessment: Date of Thrive Assessment Date Thrive assessed 06/24/23 10/27/23 14:11 Const Orientation/consciousness: patient oriented x3 HENMT Ears: hearing grossly normal bilaterally Neck Thyroid: Thyroid normal Lymphatic: no lymphadenopathy noted Resp Auscultation: clear to auscultation bilaterally Cardio Rate: regular rate Rhythm: regular rhythm Heart sounds: S1 normal heart sound present and S2 normal heart sound present GI Inspection: Yes normal to inspection Palpation (GI): Soft to palpation and Other GI palpation findings present (nontender, no cva tenderness) Auscultation: normoactive bowel sounds Rectal Exam - Female: deferred Skin General skin exam: no rashes or lesions noted Neuro General: patient oriented x3, gait normal and no focal motor deficits Assessment and Plan Assessment & Plan (1) Generalized anxiety disorder with panic attacks: Code(s): F41.1 - Generalized anxiety disorder; F41.0 - Panic disorder [episodic paroxysmal anxiety] Plan: Currently well-controlled. Continue current regimen. Follow up in 3 months. Sooner if needed (2) Dysthymia: Code(s): F34.1 - Dysthymic disorder Plan: As above (3) PCOS (polycystic ovarian syndrome): Code(s): E28.2 - Polycystic ovarian syndrome Plan: We will start metformin. Discussed risks and benefits and adverse effects of this medication. We will check labs in a few months and follow up at that time. She will let me know if she has any GI side effects. Patient understands and agrees with this plan. Orders: Orders Comprehensive Met. Panel Today E28.2 - Polycystic ovarian syndrome, F34.1 - Dysthymic disorder, F41.0 - Panic disorder [episodic paroxysmal anxiety], F41.1 - Generalized anxiety disorder Medications: New metformin ER 500 mg PO DAILY 90 tabs 3RF Coding Level of Care Code Complex EM visit Add On G2211 Diagnoses Generalized anxiety disorder with panic attacks F41.1; F41.0 Dysthymia F34.1 PCOS (polycystic ovarian syndrome) E28.2 Additional Codes ARTURO-7 Assessment Billing - ARTURO-7 Assessment Tool: ARTURO-7 Assessment 14546 ([id number])
[2023-10-27 14:06] VITALS: BP 138/83; PULSE 104; RESP 14; O2SAT 100; BMI 31.7
== END 2023-10-27 15:11 | disposition home or self-care (01) ==
PROVIDERS: PCP Physician Assistant; Visit Provider Physician Assistant
DX: F41.1 Generalized anxiety disorder (principal); F41.0 Panic disorder [episodic paroxysmal anxiety]; F34.1 Dysthymic disorder; E28.2 Polycystic ovarian syndrome
CPT/HCPCS: 96127

== ENCOUNTER 2024-10-19 15:06 | Outpatient (AMB) | payer BC, SELFPAY ==
--- OUTSIDE RECORDS SUMMARY | 2024-10-19 15:12 | XMS_ITS | Encounter Summary ---
Author Organization [facility] Address [address] [place] [address] Phone Care Team Providers Care Residential Manager Name Role Phone Aye Luna MD Primary Care Provider Encounter Details Date Type Department Care Team (Late st Contact Info) Description 06/06/2013 Documentation [facility] [place] [address] [place] [address] Family Medicine, Physician [address] [place] [address] Social History Tobacco Use Types Packs/Day Years Used Date Smoking Tobacco: Never Assessed Comments Unknown Sex and Gender Information Value Date Recorded Sex Assigned at Not on file Legal Sex Female 5:06 PM EDT Gender Identity Female 12/24/2021 11:09 AM EDT Sexual Orientation Straight 07/23/2021 2: 21 PM EDT documented as of this encounter Plan of Treatment Not on file documented as of this encounter Visit Diagnoses Not on filedocumented in this encounter Care Teams Residential Manager Relationship Specialty Start Date End Date Aye Luna MD [address] [facility] [address] [place] [address] PCP - General 10/30/16 01/19/23 documented as of this encounter
--- NOTE | 2024-10-19 15:30 | MHC.PC.OV ---
Vital Signs 10/19/24 15:31 Height 5 ft 3 in Weight 188 lb 8 oz BMI 33.4 BP 116/78 Blood Pressure Location Lt brachial Position Sitting Respiration 12 Pulse 87 Pulse Source Pulse Oximeter Temp 98.3 F Temp Source Oral Pulse Oximetry (%) 98 Oxygen Delivery Method Room Air Intake Visit Reasons: sleep apnea, pcos symptoms Intake Note: Sleep apnea sxs. Senior Account Director Required: No Allergies No Known Allergies Allergy (Verified 10/19/24 15:30) Medication List - Last Reconciled 10/19/24 by Jennifer Martel PA-C desog-e.estradiol/e.estradiol 0.15-0.02 mgx21 /0.01 mg x 5 1 tab PO DAILY escitalopram oxalate (Lexapro) 10 mg PO DAILY metformin ER 500 mg PO DAILY Tobacco use date assessed: 07/28/23 Dental Screening Dental Screen Date: 10/19/24 Did you have a dental visit in the last 12 months?: Yes Did you have a dental problem in the last 6 months where you did not have access to dental care?: No Was dental information given to patient?: Patient has dentist HPI sleep apnea, pcos symptoms HPI Details Pt is a 24 y/o female who presents today for a follow up. Psych: Lexapro is very effective for the anxiety and depression. She states that this dosage is perfect. She will let me know if anything changes when she starts school in the fall. Home Visitor: She was recently diagnosed with PCOS and is wondering about taking a GLP1. She did not tolerate metformin. She says that she had significant GI distress with the metformin. She is not a good candidate for phentermine because of her history of anxiety. She also does not want to trialed the Wellbutrin because her anxiety and depression are currently well managed with Lexapro and she is worried about this changing.. She is currently working very hard on diet and exercise. She states that she is trying to reduce her carbohydrate and sugar intake and is remaining physically active but still gaining weight. She has tried numerous diets like intermittent fasting, Atkins. She states that her OBGYN started her on control to help with her cycle but she does not like taking this medication because it makes her feel nauseous. General: States that she could have sleep apnea. She snores a lot and she states that people have noticed her gasping. 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 1. Little interest or pleasure in doing things: not at all 2. Feeling down, depressed, or hopeless: not at all 3. Trouble falling or staying asleep, or sleeping too much: several days 4. Feeling tired or having little energy: several days 5. Poor appetite or overeating: not at all 6. Feeling bad about yourself - or that you are a failure or have let yourself or your family down: not at all 7. Trouble concentrating on things, such as reading the newspaper or watching television: not at all 8. Moving or speaking so slowly that other people could have noticed. Or the opposite - being so fidgety or restless that you have been moving around a lot more than usual: not at all 9. Thoughts that you would be better off or of hurting yourself in some way: not at all Total score: 2 Source: Developed by Drs. Feng Thorpe, Cass Gamboa, Marcus Tenorio and colleagues, with an educational kin from [employer]. Thrive Questionnaire Date Thrive assessed: 10/16/24 I am a: Patient What is your living situation today?: I have a steady place to live Within the past 12 months, did the food you bought not last and you didn't have the money to get more?: Never true Within the past 12 months, did you worry whether your food would run out before you got money to buy more?: Never true Do you have trouble paying for medicines?: No Do you have trouble getting transportation to medical appointments?: No Do you have trouble paying your heating and electricity bill?: No Do you have trouble taking care of your child, family member or friend?: No Do you have trouble with day-to-day activities such as bathing, preparing meals, shopping, managing finances, etc.?: No Are you currently unemployed and looking for a job?: No Are you interested in more education?: No Please select the resources that you would like help with: None Currently or been in a relationship where the following occur: No concerns reported THRIVE Score: 0 AUDIT C Alcohol Use Questionnaire (AUDIT-C) 1. How often do you have a drink containing alcohol?: 2-4 times a month 2. How many drinks containing alcohol do you have on a typical day when you are drinking?: 3 or 4 3. How often do you have six or more drinks on one occasion?: Never Total Score: 3 ARTURO-7 AMB Questionnaire ARTURO-7 Date ARTURO - 7 assessed: 10/27/23 Feeling nervous, anxious, or on edge: 1 = Several days Not being able to stop or control worryin = Not at all Worrying too much about different things: 0 = Not at all Trouble relaxin = Not at all Being so restless that it is hard to sit still: 0 = Not at all Becoming easily annoyed or irritable: 0 = Not at all Feeling afraid as if something awful might happen: 1 = Several days Total ARTURO-7 score (0-4 normal; 5-9 mild; 10-14 moderate; 15-21 severe): 2 Source: Developed by Drs. Feng Thorpe, Cass Gamboa, Marcus Tenorio and colleagues, with an educational kin from [employer]. Physical exam (Primary Care) Vital Signs: Last Vital Signs Temp 98.3 F 10/19/24 15:31 Pulse 87 10/19/24 15:31 Resp 12 10/19/24 15:31 BP 116/78 10/19/24 15:31 Pulse Ox 98 10/19/24 15:31 Oxygen Delivery Method Room Air 10/19/24 15:31 BMI result Body Mass Index 33.4 Tobacco/Smoking Status: Tobacco use Status Tobacco use date assessed 07/28/23 10/19/24 15:34 Patient Tobacco Use Status Never used Tobacco 10/19/24 15:34 e-Cigarette/Vaping Use Former Use 10/19/24 15:34 PHQ-9: PHQ-9 Score PHQ-9: Total score 2 10/19/24 15:34 Thrive Assessment: Date of Thrive Assessment Date Thrive assessed 10/16/24 10/19/24 15:34 Currently or been in a relationship where the following occur: No concerns reported Coding Level of Care Code Est Pt Level 4 (09894) Complex EM visit Add On G2211 Diagnoses Witnessed episode of apnea R06.81 PCOS (polycystic ovarian syndrome) E28.2 Obesity (BMI 30-39.9) E66.9 Assessment & Plan Assessment & Plan (1) Witnessed episode of apnea: Code(s): R06.81 - Apnea, not elsewhere classified Category: Medical Plan: Sleep study ordered (2) PCOS (polycystic ovarian syndrome): Code(s): E28.2 - Polycystic ovarian syndrome Category: Medical Plan: Referral to gynecology (3) Obesity (BMI 30-39.9): Code(s): E66.9 - Obesity, unspecified Category: Medical Plan: I have encouraged her to continue with the low carb, low sugar diet and increased physical activity. We discussed tracking her food. She will let me know if her insurance covers and GLP 1 and I will order this for her. She failed metformin. Would not be a good candidate for phentermine or Wellbutrin due to mental health. Orders: Orders RT home sleep study 10/19/24 R06.81 - Apnea, not elsewhere classified Referrals Sleep Medicine Referral R06.81 - Apnea, not elsewhere classified ENVIRONMENTAL ENGINEERING PROFESSOR Referral E28.2 - Polycystic ovarian syndrome, Z01.419 - Encounter for gynecological examination (general) (routine) without abnormal findings
[2024-10-19 15:31] VITALS: BP 116/78; PULSE 87; RESP 12; TEMP 36.8; O2SAT 98; BMI 33.4
== END 2024-10-19 17:05 | disposition home or self-care (01) ==
LOC: HO.HMCFM 15:07
PROVIDERS: PCP Physician Assistant; Visit Provider Physician Assistant
DX: R06.81 Apnea, not elsewhere classified (principal); E28.2 Polycystic ovarian syndrome; E66.9 Obesity, unspecified; Z68.33 Body mass index [BMI] 33.0-33.9, adult

== ENCOUNTER 2025-01-17 13:57 | Outpatient (AMB) | payer BC, SELFPAY ==
--- NOTE | 2025-01-17 14:07 | A.OFFPC_ITS ---
Vital Signs 01/17/25 14:09 Height 5 ft 3 in Weight 171 lb 2 oz BMI 30.3 BP 102/66 Blood Pressure Location Rt brachial Position Sitting Respiration 12 Pulse 85 Pulse Source Pulse Oximeter Pulse Oximetry (%) 99 Oxygen Delivery Method Room Air Intake Visit Reasons: zepbound check in Intake Note: Follow up Direct Service Provider Required: No Allergies No Known Allergies Allergy (Verified 01/17/25 14:08) Medication List - Last Reconciled 01/17/25 by Jennifer Martel PA-C escitalopram oxalate (Lexapro) 10 mg PO DAILY tirzepatide (weight loss) (Zepbound) 2.5 mg (0.5 mL) subcut QWEEK Tobacco use date assessed: 01/17/25 Dental Screening Dental Screen Date: 10/19/24 HPI zepbound check in HPI Details Pt is a 24 y/o female who presents today for a follow up. Psych: Lexapro is very effective for the anxiety and depression. She states that this dosage is perfect. She will let me know if anything changes. General: She was started on Zepbound 2.5 mg and states that this is very effective for her. She has lost about 20 lb. She does get nauseous for the 1st 1-2 days of the medication. She does not think she would tolerate a higher dose at this point. She is following a diet and exercise program. She is feeling well. No acute concerns today. Has felt that this is helped her PCOS. 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: No Do you have trouble getting transportation to medical appointments?: No Do you have trouble paying your heating and electricity bill?: No Do you have trouble taking care of your child, family member or friend?: No Do you have trouble with day-to-day activities such as bathing, preparing meals, shopping, managing finances, etc.?: No Are you currently unemployed and looking for a job?: No Are you interested in more education?: No Please select the resources that you would like help with: None Currently or been in a relationship where the following occur: No concerns reported THRIVE Score: 0 AUDIT C Alcohol Use Questionnaire (AUDIT-C) 1. How often do you have a drink containing alcohol?: Monthly or less 2. How many drinks containing alcohol do you have on a typical day when you are drinking?: 3 or 4 3. How often do you have six or more drinks on one occasion?: Never Total Score: 2 ARTURO-7 AMB Questionnaire ARTURO-7 Date ARTURO - 7 assessed: 10/27/23 Source: Developed by Drs. Feng Thorpe, Cass Gamboa, Marcus Tenorio and colleagues, with an educational kin from [employer]. Physical exam (Primary Care) Vital Signs: Last Vital Signs Pulse 85 01/17/25 14:09 Resp 12 01/17/25 14:09 BP 102/66 01/17/25 14:09 Pulse Ox 99 01/17/25 14:09 Oxygen Delivery Method Room Air 01/17/25 14:09 BMI result Body Mass Index 30.3 Tobacco/Smoking Status: Tobacco use Status Tobacco use date assessed 01/17/25 01/17/25 14:11 Patient Tobacco Use Status Never used Tobacco 01/17/25 14:11 e-Cigarette/Vaping Use Former Use 01/17/25 14:11 Thrive Assessment: Date of Thrive Assessment Date Thrive assessed 10/16/24 01/17/25 14:11 Currently or been in a relationship where the following occur: No concerns reported Const Orientation/consciousness: patient oriented x3 HENMT Ears: hearing grossly normal bilaterally Neck Thyroid: Thyroid normal Lymphatic: no lymphadenopathy noted Resp Auscultation: clear to auscultation bilaterally Cardio Rate: regular rate Rhythm: regular rhythm Heart sounds: S1 normal heart sound present and S2 normal heart sound present GI Inspection: Yes normal to inspection Palpation (GI): Soft to palpation and Other GI palpation findings present (nontender, no cva tenderness) Auscultation: normoactive bowel sounds Rectal Exam - Female: deferred Skin General skin exam: no rashes or lesions noted Neuro General: patient oriented x3, gait normal and no focal motor deficits Coding Level of Care Code Est Pt Level 4 (73277) Complex EM visit Add On G2211 Diagnoses Obesity (BMI 35.0-39.9 without comorbidity) E66.9 Generalized anxiety disorder with panic attacks F41.1; F41.0 Dysthymia F34.1 Assessment & Plan Assessment & Plan (1) Obesity (BMI 35.0-39.9 without comorbidity): Code(s): E66.9 - Obesity, unspecified Category: Medical Plan: Has lost 20 lb. Congratulated her on this. I will continue the current dosage as it does appear to be helping. (2) Generalized anxiety disorder with panic attacks: Code(s): F41.1 - Generalized anxiety disorder; F41.0 - Panic disorder [episodic paroxysmal anxiety] Category: Medical Plan: Well-controlled continue current regimen (3) Dysthymia: Code(s): F34.1 - Dysthymic disorder Category: Medical Plan: As above Plan Labs ordered today. Flu shot today Orders: Orders Comprehensive [place]. Panel Fast Today E66.9 - Obesity, unspecified, F34.1 - Dysthymic disorder, F41.0 - Panic disorder [episodic paroxysmal anxiety], F41.1 - Generalized anxiety disorder Complete Blood Count Auto Diff Today E66.9 - Obesity, unspecified, F34.1 - Dysthymic disorder, F41.0 - Panic disorder [episodic paroxysmal anxiety], F41.1 - Generalized anxiety disorder TSH reflex Free T4 Today E66.9 - Obesity, unspecified, F34.1 - Dysthymic disorder, F41.0 - Panic disorder [episodic paroxysmal anxiety], F41.1 - Generalized anxiety disorder Medications: Changed From tirzepatide (weight loss) (Zepbound) for 4 weeks 2.5 mg (0.5 mL) subcut QWEEK 2 mL 2RF To tirzepatide (weight loss) (Zepbound) 2.5 mg (0.5 mL) subcut QWEEK 2 mL 5RF Refilled escitalopram oxalate (Lexapro) 10 mg PO DAILY 90 tabs 2RF
[2025-01-17 14:09] VITALS: BP 102/66; PULSE 85; RESP 12; O2SAT 99; BMI 30.3
--- OUTSIDE RECORDS SUMMARY | 2025-01-17 17:53 | XMS_ITS | Encounter Summary ---
Author Organization [facility] Address [address] [place] [address] Phone Care Team Providers Care Contour Sander Name Role Phone Aye Luna MD Primary Care Provider [phone] Encounter Details Date Type Department Care Team (Late st Contact Info) Description 09/29/2016 Documentation [facility] [place] [facility] [place] [address] [place] [address] Family Medicine, Physician [address] [place] [address] Social History Tobacco Use Types Packs/Day Years Used Date Smoking Tobacco: Never Comments:Never smoker Comments Unknown Sex and Gender Information Value Date Recorded Sex Assigned at Not on file Legal Sex Female 5:06 PM EDT Gender Identity Female 12/24/2021 11:09 AM EDT Sexual Orientation Straight 07/23/2021 2: 21 PM EDT documented as of this encounter Plan of Treatment Not on file documented as of this encounter Visit Diagnoses Not on filedocumented in this encounter Care Teams Contour Sander Relationship Specialty Start Date End Date Aye Luna MD [address] [place] [address] [place] [address] PCP - General 10/30/16 01/19/23 documented as of this encounter
--- OUTSIDE RECORDS SUMMARY | 2025-01-17 17:53 | XMS_ITS | Encounter Summary ---
Author Organization [facility] Address [address] [place] [address] Phone Care Team Providers Care Flow Machine Operator Name Role Phone Aye Luna MD Primary Care Provider Reason for Visit * Reason Comments Med Refill Encounter Details Date Type Department Care Team (Late st Contact Info) Description 09/21/2021 Refill [facility] [place] [address] [place] [address] Aye Luna MD [address] [place] [address] Oral contraceptive pill surveillance Social History Tobacco Use Types Packs/Day Years Used Date Smoking Tobacco: Never Smokeless Tobacco: Never Comments:Never smoker Alcohol Use Standard Drinks/Week Comments No 0 (1 standard drink = 0.6 oz pur e alcohol) Hunger/Food Answer Date Recorded In the last 12 months, did y ou or your family ever eat less than you felt you should because there wasn't enough money for food? No 07/23/2021 Stable Housing Answer Date Recorded Are you worried that in the next 2 months you may not have stable housing? No 07/23/2021 Transportation Concerns Answer Date Rec orded In the last 12 months, have you or your family ever had to go without healthcare because you didn't have a way to get there? No 07/23/2021 Hazards in Home Answer Date Recorded Think about the place you li ve. Do you have problems with any of the following? Pests (mice or roaches), mold, no/not working smoke detectors, water leaks, no window guards. No 2021 Financing Utilities Answer Date Recorde d In the last 12 months, has t he electric, gas, oil, or water company threatened to shut off your services in your home? No 07/23/2021 Safety at Home Answer Date Recorded Are you or your family worried about feeling saf e in your home? No 07/23/2021 Outside Support Answer Date Recorded Do you feel that you need mo re support from other people or programs to help you care for yourself or your family? No 07/23/2021 Understanding Health Concerns Answer Da te Recorded Do you need help understandi ng your or your child's healthcare needs (diagnosis, medications, plan, etc.)? No 07/23/2021 Financing Health Concerns Answer Date R ecorded In the last 12 months, was t here a time when your child needed to see a doctor or get medications or supplies but could not because of cost? No 07/23/2021 Missing School or Work Answer Date Zehng rded Did you or your child miss s chool or work because of a health problem that could have been avoided? No 07/23/2021 Comments No Sex and Gender Information Value Date Recorded Sex Assigned at Not on file Legal Sex Female 5:06 PM EDT Gender Identity Female 12/24/2021 11:09 AM EDT Sexual Orientation Straight 07/23/2021 2: 21 PM EDT documented as of this encounter Miscellaneous Notes * Telephone Encounter - Aye Luna MD - 09/21/2021 1:20 PM EDT Script sent. PPP * Telephone Encounter - Delisa Will LPN - 09/21/2021 10:39 AM EDT Faxed refill request / current with PE documented in this encounter Plan of Treatment Not on file documented as of this encounter Visit Diagnoses Diagnosis Oral contraceptive pill surveillance documented in this encounter Care Teams Flow Machine Operator Relationship Specialty Start Date End Date Aye Luna MD [address] [facility] [place] [address] PCP - General 10/30/16 01/19/23 documented as of this encounter
--- OUTSIDE RECORDS SUMMARY | 2025-01-17 17:53 | XMS_ITS | Clinical Summary ---
Author Organization [facility] Address [address] [place] [address] Phone Care Team Providers Care Mental Health Program Director Name Role Phone Unavailable Primary Care Provider Unavailabl e Allergies No known active allergies Medications levonorgestrel-eth inyl estradiol (Vienva) 0.1-20 MG-MCG per tabletIndications: Oral contraceptive pill surveillance Take 1 tablet by mouth once daily. 84 tablet 1 3 Active Active Problems Problem Noted Date Diagnosed Date Anxiety 11/04/2016 Overview (01/26/2018): Has learned coping skills and is doing well Resolved Problems Problem Noted Date Diagnosed Date Resolved Date Need for case management follow-up 02/27/2020 07/23/2021 Overview (02/27/2020): STD screen not done due to national shortage of tests Immunizations Immunization Administration Dates Next Due DTaP 5 09/03/2005, 3,01/18/2002,11/16,2001 HPV, Quadrivalent 10/24/2013,12/28/2012,10/18/19 13 Hep A, ped/adol 10/24/2013,09/23/2010 Hep B, ped/adol 02/07/2018, 8,04/20/2002,08/16,2001 Hib (PRP-T) 11/10/2002, 2,2001,09/14 IPV 09/03/2005, 3,2001,09/14 Influenza Split 03/28/2012 Influenza, injectable, quadrivalent 01/03/2016 Influenza, injectable, quadr ivalent, preservative free 07/23/2021,02/27/2020,02/22/2019,01/26,01/25/2017,12/19/2014,01/24/2014 ,12/28/2012 Influenza, injectable, trivalent 02/10/2008 MMR 09/03/2005,08/09/2002 Meningococcal B Trumenba 02/27/2020,02/22/2019 Meningococcal Conj (Menactra) MCV4P 01/26/2018,0 10/17/2012 Pneumococcal Conjugate 11/10/2002,2002,2001,09/14 Tdap 10/17/2012 Varicella 09/19/2007,08/09/2002 Family History Medical History Relation Name Comments No Known Problems Father Milad No Known Problems Mother Kenyatta No Known Problems Sister 1 Lavern No Known Problems Sister 2 Yonathan Relation Name Status Comments Father Milad Alive Father: Asthma Mother Kenyatta Alive Mother: Asthma Paternal Grandfather Paterna l grandfather: Obesity Sister 1 Lavern Alive Sister: Alive a nd well, Alive and well Sister 2 Yonathan Alive Sister: Alive a nd well, Alive and well Social History Tobacco Use Types Packs/Day Years Used Date Smoking Tobacco: Never Smokeless Tobacco: Never Tobacco Cessation:Counseling Given: Yes Comments:Never smoker Alcohol Use Standard Drinks/Week Comments [...] 07/23/2021 Missing School or Work Answer Date Zheng rded Did you or your child miss s chool or work because of a health problem that could have been avoided? No 07/23/2021 Comments No Sex and Gender Information Value Date Recorded Sex Assigned at Not on file Legal Sex Female 5:06 PM EDT Gender Identity Female 12/24/2021 11:09 AM EDT Sexual Orientation Straight 07/23/2021 2: 21 PM EDT Last Filed Vital Signs Vital Sign Reading Time Taken Comments Blood Pressure 148/89 12/24/2021 2:14 PM EDT Pulse 105 12/24/2021 2:14 PM EDT Temperature 36.2 C (97.2 F) 12/24/2021 2:14 PM EDT Respiratory Rate - - Oxygen Saturation 100% 05/11/2014 12:00 AM EST Inhaled Oxygen Concentration - - Weight 73.1 kg (161 lb 3.2 oz) 12/24/2021 2:14 P M EDT Height 162.6 cm (5' 4 ) 07/23/2021 1:41 PM EDT Body Mass Index 27.67 07/23/2021 1:41 PM EDT Plan of Treatment Health Maintenance Due Date Last Done Comments DTaP,Tdap,and Td Vaccines (7 - Td or Tdap) 10/17/2022 10/17/2012, 09/03/2005, 01/29/2003, Additional history exists Influenza Vaccines (#1) 2024 07/24/19 22, 02/27/2020, 02/22/2019, Additional history exists COVID-19 Vaccine (2024-04 6 season) 2024 05/19/2021, 04/18/2020, 03/28/2020 HIB Vaccines Completed 11/10/2002, 12/22, 2001, Additional history exists Pneumococcal Vaccine Completed 11/10/2002, 04/20/2002, 2001, Additional history exists IPV Vaccines Completed 09/03/2005, 03/24, 2001, Additional history exists MMR Vaccines Completed 09/03/2005, 08/09/2002 Varicella Vaccines Completed 09/19/2007, 08/09/2002 HPV Vaccines Completed 10/24/2013, 0 11/2012, 10/17/2012 Hepatitis A Vaccines Completed 10/24/2013, 09/24/19 11 Meningococcal Vaccine Completed 01/26/2018, 013 Hepatitis B Vaccines Completed 02/07/2018, 01/07/2018, 04/20/2002, Additional history exists Men B Vaccine Completed 02/27/2020, 02/22/2019 Procedures * Due to [place] law, this organization might not be sharing sensitive test results. Procedure Name Priority Date/Time Associated Diagnosis Comments CHLAMYDIA AND GONORRHEA, AMPLIFIED Routine 07/23/2021 2:36 PM EDT Special screening examination for chlamydial disease from Last 3 Months or Most Recently Relevant to Health Maintenance Results * Due to [place] law, this organization might not be sharing sensitive test results. * Chlamydia and Gonorrhoea, Amplified (07/23/2021 2:36 PM EDT) Chlamydia Trachomatis, DNA Probe NEGATIVE (NEG) [facility] Comment: No Chlamydia Trachomatis RNA detected in this patient's sample (REFERENCE RANGE/NORMAL VALUE: NOT DETECTED) Note: This test uses biological aide- mediated amplification method to detect rRNA from C. Trachomatis URINE GC AMP PROBE NEGATIVE (NEG) [facility] Comment: No Neisseria Gonorrhoeae RNA detected in this patient's sample (REFERENCE RANGE/NORMAL VALUE: NOT DETECTED) NOTE: This test uses biological aide-mediated amplification method to detect rRNA from N.Gonorrhoeae. A negative result does not preclude infection. In the case of a negative urine result, testing of an endocervical(female) or urethral (male) specimen is recommended if there is high clinical suspicion of infection. Due to very high sensitivity of Nucleic Acid Amplification Test, false positive results may occur. Therefore, specimen handling is extremely important. In patients in whom the disease is unlikely, additional sample for testing should be considered after an initial positive result. The performance characteristics of this test have not been evaluated in children. The Aptima Combo2 assay is not intended for the evaluation of suspected sexual abuse or for other medico-legal indications. The ordering provider should assess if the patient had consensual sex without risk of sexual abuse. Consult the [facility] if needed. Contact phone number . Therapeutic failure or success cannot be determined with the Aptima Combo2 assay since nucleic acid may persist following appropriate antimicrobial therapy. The Centers for Disease Control and Prevention (CDC) recommends confirmatory retesting using culture or a different nucleic acid amplification test when positive results occur, if indicated. Testing performed or reported by [facility], a Service of [facility], [address] [place] [address] [place] [address] Marcus Pierre MD, Exit Booth Agent [facility]# [id number] Urine (Urine) 07/23/2021 2:3 6 PM EDT 07/23/2021 9:21 PM EDT us Aye Luna MD LAB MICROBIOLOGY - GENERAL ORDERABLES Final Result [facility] from Last 3 Months or Most Recently Relevant to Health Maintenance
--- OUTSIDE RECORDS SUMMARY | 2025-01-17 17:53 | XMS_ITS | Encounter Summary ---
Author Organization [facility] Address [address] [place] [address] Phone Care Team Providers Care Blocker Polishing Name Role Phone Aye Luna MD Primary Care Provider [phone]- [phone] Encounter Details Date Type Department Care Team (Late st Contact Info) Description 10/02/2016 Documentation [facility] [place] [facility] [address] [place] [address] Family Medicine, Physician [address] [place] [address] Social History Tobacco Use Types Packs/Day Years [...] on filedocumented in this encounter Care Teams Blocker Polishing Relationship Specialty Start Date End Date Aye Luna MD [address] [place] [address] [place] [id number] PCP - General 10/30/16 01/19/23 documented as of this encounter
--- OUTSIDE RECORDS SUMMARY | 2025-01-17 17:53 | XMS_ITS | Encounter Summary ---
Author Organization [facility] Address [address] [place] [address] Phone Care Team Providers Care Staff Forester Name Role Phone Aye Luna MD Primary Care Provider [phone]- [phone] Encounter Details Date Type Department Care Team (Late st Contact Info) Description 10/02/2016 Documentation [facility] [place] Family Medicine [address] [place] [address] Family Medicine, Physician [address] [place] [address] Social History Tobacco Use Types Packs/Day Years [...] on filedocumented in this encounter Care Teams Staff Forester Relationship Specialty Start Date End Date Aye Luna MD [address] [place] [address] [place] [address] PCP - General 10/30/16 01/19/23 documented as of this encounter
--- OUTSIDE RECORDS SUMMARY | 2025-01-17 17:53 | XMS_ITS | Encounter Summary ---
Author Organization [facility] Address [address] [place] [address] Phone Care Team Providers Care Band Booker Name Role Phone Aye Luna MD Primary Care Provider [phone]- [phone] Encounter Details Date Type Department Care Team (Late st Contact Info) Description 10/02/2016 Documentation [facility] [place] Family Medicine [address] [place] [address] Family Medicine, Physician [address] [place] [address] Social History Tobacco Use Types Packs/Day Years [...] on filedocumented in this encounter Care Teams Band Booker Relationship Specialty Start Date End Date Aye Luna MD [address] [place] [address] [place] [id number] PCP - General 10/30/16 01/19/23 documented as of this encounter
--- OUTSIDE RECORDS SUMMARY | 2025-01-17 17:53 | XMS_ITS | Encounter Summary ---
Author Organization [facility] Address [address] [place] [address] Phone Care Team Providers Care Silver Service Waiter Name Role Phone Aye Luna MD Primary Care Provider [phone] Encounter Details Date Type Department Care Team (Late st Contact Info) Description 11/05/2016 Conversion Encounter [facility] [place] [address] [place] [address] Social History Tobacco Use Types Packs/Day Years [...] on filedocumented in this encounter Care Teams Silver Service Waiter Relationship Specialty Start Date End Date Aye Luna MD [address] [place] [address] PCP - General 10/30/16 01/19/23 documented as of this encounter
--- OUTSIDE RECORDS SUMMARY | 2025-01-17 17:53 | XMS_ITS | Encounter Summary ---
Author Organization [facility] Address [address] [place] [address] Phone Care Team Providers Care Hearse Driver Name Role Phone Aye Luna MD Primary Care Provider [phone]- [phone] Encounter Details Date Type Department Care Team (Late st Contact Info) Description 10/01/2016 Documentation [facility] [place] Family Medicine [address] [place] [address] Family Medicine, Physician [address] [place] [address] Social History Tobacco Use Types Packs/Day Years [...] on filedocumented in this encounter Care Teams Hearse Driver Relationship Specialty Start Date End Date Aye Luna MD [address] [place] [address] [place] [address] PCP - General 10/30/16 01/19/23 documented as of this encounter
--- OUTSIDE RECORDS SUMMARY | 2025-01-17 17:53 | XMS_ITS | Data Portability ---
Author Organization [facility] [employer] [facility] [address] Address [address] [place] [address] Assessment No assessment recorded. Plan of Treatment Reminders Order Date Submit Date Provider Last Modified By Organization Details Last Modified Time Details Appointments None recorded. Lab None recorded. Referral None recorded. Procedures None recorded. Surgeries None recorded. Imaging None recorded. Medication Orders diclofenac sodium 50 mg tablet,eddy yed release 2023 024 [email or web address] [address] [facility]acy #[id number], [address] [place], [address], 11:57:21 Patient TargetsNo targets recorded. Patient Instructions Encounter Date Encounter Id Patient Instructions Last Modified By Organization Details Last Modified Time 05/05/2023 [id number] learning about rice (rest, ice, compression, and elevation) [email or web address] Not available 05/05/2023 12:21:20 application of TYREE wrap* [email or web address] Not available 05/13/2023 08:17:09 Reason for Referral None Reported. Problems No Known Problems Procedures Surgical History Date Name Laterality Status Provider Name and Address Organization Details Recorded Time 4 CRUTCHES-UND ERARM completed LAMAR FAJARDO PA - [facility] 05/05/2023 19:47:04 4 Tyree Bandage completed LAMAR FAJARDO PA - [facility] 05/05/2023 19:46:23 Imaging Results None recorded. Procedure Notes None recorded. Medical Equipment None Reported. Allergies No known drug allergies Medications Name Sig Start Date Stop Date Status Note LastModified by Organization Details LastModified Time ibuprofen 200 mg capsule Take 1 capsule every 6 hours by oral route. active Not Available Not Available No t Available diclofenac sodium 50 mg tablet,delay ed release Take 1 tablet twice a day by oral route. 024 active Not Available Not Available Not Avai lable Vitals Date Recorded Body height Body mass index (BMI) Body weight Pain severity - 0-10 verbal numeric rating [Score] - Reported Respiratory rate Body temperature Oxygen saturation Oxygen saturation in Arterial blood by Pulse oximetry Heart rate Systolic And Diastolic Provider Name and Address Organization Details Last Updated DateTime 4 160.02 cm 28.3 kg/m2 61980.7 8 g 4 18 /min 97.7 [degF] 99 % 99 % 93 /min 125/85 mm[Hg] LAMAR FAJARDO PA [facility] 4 11:40:59 Social History Question Answer Notes LastModified by [employer] Details LastModified Time Tobacco Smoking Status Never Smoker LAMAR garcia PA [facility] 05/05/2023 11:39:09 Have You Recently Traveled Abroad? No Information not available 05/05/2023 Sex: Unknown Functional Status Question Answer Note LastModified by [employer] Details LastModified Time Do you use any illicit or recreational drugs? No [email or web address] Information not available 05/05/2023 Do you or have you ever used any other forms of tobacco or nicotine? No [email or web address] Information not available 05/05/2023 What is your level of alcohol consumption? Occasional Information not available 05/05/2023 Mental Status None recorded. Family History Relationship Description Onset Age of this Age Resolved Age Notes LastModified by Organization Details LastModified Time Father No current problems or disability Not available 05/05 11:38:50 Mother No current problems or disability [email or web address] Not available 05/05 11:38:50 Medical History No medical history recorded. Gynecological History Statement/Question Response Date of LMP 04/16/2023 Is there any chance of ? No LMP Approximate Obstetrics History GPAL:G 0 P 0 0 0 0 Past Encounters Encounter ID Performer Location Encounter Start Date Encounter Closed Date Diagnosis/Indication Diagnosis SNOMED-CT Code Diagnosis ICD10 Code Diagnosis IMO Codes Diagnosis Note [id number] [place] [address] [facility] [place] [address] 05/05/2023 11:20:55 05/05/2023 12:26:06 Strain of tendon of foot and ankle 939293239 S96.912A Health Concerns Section Related Observation LastModified by Organization Detai ls LastModified Time None Recorded Concern Status LastModified by Organization Details LastModified Time None Recorded Advance Directives Directive None Recorded Payers Insurance Date Sequence Insurance Name Policy Number Policy Keller Covered Member ID Keller Member ID Guarantor Name 05/23/2023 1 [facility] [id number] Kenyatta Hobbs [id number] Chantell Arevalo Notes Date Note Type Note Provider Name and Address Organization Details Recorded Time 05/05/2023 text/html 22 yo female states she hurt her left ankle at soccer game last night. ---Twisted her left ankle and heard crack/pop. Now the ankle is swollen and bruised. She is limping and applied ice & elevated all night. SHREYAS BERMAN MD [address] [place] [address] [place], [address], [place] - [facility] 05/29/2023 11:57:49 OBGyn Episode No OBEpisode recorded.
--- OUTSIDE RECORDS SUMMARY | 2025-01-17 17:53 | XMS_ITS | Encounter Summary ---
Author Organization [facility] Address [address] [place] [address] Phone Care Team Providers Care Saw Straightener Name Role Phone Aye Luna MD Primary Care Provider [phone]- [phone] Encounter Details Date Type Department Care Team (Late st Contact Info) Description 12/30/2010 Documentation [facility] [address] [place] [address] Family Medicine, Physician [address] [place] [address] Social History Tobacco Use Types Packs/Day Years [...] on filedocumented in this encounter Care Teams Saw Straightener Relationship Specialty Start Date End Date Aye Luna MD [address] [facility] [place] [address] PCP - General 10/30/16 01/19/23 documented as of this encounter
--- OUTSIDE RECORDS SUMMARY | 2025-01-17 17:53 | XMS_ITS | Encounter Summary ---
Author Organization [facility] Address [address] [place] [address] Phone Care Team Providers Care Motion Picture Film Examiner Name Role Phone Aye Luna MD Primary Care Provider Encounter Details Date Type Department Care Team (Late st Contact Info) Description 06/06/2013 Documentation [facility] [place] Family Medicine [address] [place] [address] Family Medicine, Physician [address] [place] [address] Social History Tobacco Use Types Packs/Day Years [...] on filedocumented in this encounter Care Teams Motion Picture Film Examiner Relationship Specialty Start Date End Date Aye Luna MD [address] [facility] [place] [address] PCP - General 10/30/16 01/19/23 documented as of this encounter
--- OUTSIDE RECORDS SUMMARY | 2025-01-17 17:53 | XMS_ITS | Encounter Summary ---
Author Organization [facility] Address [address] [place] [address] Phone Care Team Providers Care Thread Checker Name Role Phone Aye Luna MD Primary Care Provider [phone]- [phone] Encounter Details Date Type Department Care Team (Late st Contact Info) Description 10/02/2016 Documentation [facility] [place] Family Medicine [address] [place] [address] Family Medicine, Physician [address] [place] [address] Social History Tobacco Use Types Packs/Day Years [...] on filedocumented in this encounter Care Teams Thread Checker Relationship Specialty Start Date End Date Aye Luna MD [address] [place] [address] [place] [address] PCP - General 10/30/16 01/19/23 documented as of this encounter
--- OUTSIDE RECORDS SUMMARY | 2025-01-17 17:53 | XMS_ITS | Encounter Summary ---
Author Organization [facility] Address [address] [place] [address] Phone Care Team Providers Care Polyethylene Bag Machine Operator Name Role Phone Aye Luna MD Primary Care Provider [phone]- [phone] Encounter Details Date Type Department Care Team (Late st Contact Info) Description 06/05/2014 Documentation [facility] [place] Family Medicine [address] [place] [address] Family Medicine, Physician [address] [place] [address] Social History Tobacco Use Types Packs/Day Years [...] on filedocumented in this encounter Care Teams Polyethylene Bag Machine Operator Relationship Specialty Start Date End Date Aye Luna MD [address] [facility] [place] [address] PCP - General 10/30/16 01/19/23 documented as of this encounter
== END 2025-01-17 15:38 | disposition home or self-care (01) ==
LOC: HO.HMCFM 13:58
PROVIDERS: PCP Physician Assistant; Visit Provider Physician Assistant
DX: F41.1 Generalized anxiety disorder (principal); E66.9 Obesity, unspecified; Z68.30 Body mass index [BMI] 30.0-30.9, adult; F41.0 Panic disorder [episodic paroxysmal anxiety]; F34.1 Dysthymic disorder; Z23 Encounter for immunization

== ENCOUNTER → 2025-01-17 13:57 | Outpatient (BNVA) | payer BC, SELFPAY | PROVIDERS: PCP Physician Assistant; Visit Provider Physician Assistant | DX: F41.1 Generalized anxiety disorder (principal); E66.9 Obesity, unspecified; F32.A Depression, unspecified; F41.0 Panic disorder [episodic paroxysmal anxiety]; F34.1 Dysthymic disorder; Z23 Encounter for immunization; Z79.899 Other long term (current) drug therapy; Z68.30 Body mass index [BMI] 30.0-30.9, adult | CPT/HCPCS: 90471; 90656 ==